=== PATIENT | female | born 1980 | race Caucasian/White ===

== ENCOUNTER 2019-01-18 16:05 | Emergency (ER) | payer MEDICAID, SELFPAY ==
[2019-01-18] MEDS ORDERED: Acetaminophen 500 MG TAB ONE (16:52)
== END 2019-01-18 17:37 | disposition home or self-care (01) ==
LOC: MADERS 16:05
DX: B34.9 Viral infection, unspecified (principal); F17.210 Nicotine dependence, cigarettes, uncomplicated
CPT/HCPCS: 87804; 99283

== ENCOUNTER 2019-01-22 00:14 | Emergency (ER) | payer MEDICAID ==
[2019-01-22 01:03] LABS: #Basophils 0.1 thou/uL (0.0-0.2); #Monocytes 0.5 thou/uL (0.11-0.59); #Neutrophils 9.8 thou/uL (1.40-6.50); %Basophils 0.5 % (0.0-1.0); %Lymphocytes 9.1 % (21.0-51.0); %Monocytes 4.6 % (0.0-10.0); %Neutrophils 85.7 % (42.0-75.0); Hemoglobin 14.2 g/dL (12.0-16.0); Mean Corpuscular HGB CONC 33.9 g/dL (32.0-36.0); Mean Corpuscular Hemoglobin 30.2 pg (27.0-31.0); Mean Corpuscular Volume 88.9 fL (78.0-98.0); Mean Platelet Volume 7.1 fL (7.4-10.4); Platelet Count 235 thou/uL (130-400); RBC Distribution Width 11.4 % (11.5-14.5); Red Blood Cell (RBC) Count 4.69 mill/uL (4.20-5.40); White Blood Cell (WBC) Count 11.4 thou/uL (4.8-10.8)
[2019-01-22 01:14] LABS: BHCG - Serum Negative (NEGATIVE); Pregs Control Background? CLEAR/WHITE (CLR/WHITE); Pregs Control Bar Appear? YES (CONTROL BAR)
[2019-01-22 01:20] LABS: Acetaminophen Less than 6.0 mcg/mL (10.0-30.0); Alcohol Less than 10 mg/dL (Less than 10); Salicylate Less than 8.0 mg/dL (15.0-30.0)
[2019-01-22 01:22] LABS: ALT (SGPT) 24 U/L (8-55); AST (SGOT) 17 U/L (5-34); Albumin 4.1 g/dL (3.5-5.0); Alkaline Phosphatase 46 U/L (40-150); Anion Gap 15 mmol/L (10-20); BUN (Urea Nitrogen) 18 mg/dL (7.0-18.7); Bilirubin, Total 0.6 mg/dL (0.2-1.2); CK (CPK) 66 U/L (29-168); Calc. Creatinine Clearance 0 mL/min (70-130); Calcium 8.5 mg/dL (7.8-10.44); Carbon Dioxide 24 mmol/L (22-29); Chloride 103 mmol/L (98-107); Estimated GFR-MDRD 82; Globulin 2.8 g/dL (2.4-3.5); Glucose 151 mg/dL (70-105); Potassium 3.3 mmol/L (3.5-5.1); Protein, Total 6.9 g/dL (6.0-8.3); Sodium 139 mmol/L (136-145)
[2019-01-22 01:43] LABS: Bilirubin Moderate (Negative); Blood, Urine Large (Negative); Glucose, Urine (Dipstick) Negative (Negative); Leukocyte Negative (Negative); Nitrite Negative (Negative); Protein, Urine (Dipstick) 100 mg/dL (Neg-Trace); pH, Urine 6.5 (5.0-9.0)
[2019-01-22 01:45] LABS: Cocaine Metabolite Screen Not Detected (NotDetected); Methamphetamine Not Detected (NotDetected); Opiate Screen Detected (NotDetected); Phencyclidine (PCP) Not Detected (NotDetected); THC/Cannabinoid Screen Detected (NotDetected)
[2019-01-22 01:46] LABS: Amphetamine Not Detected (NotDetected); Barbiturates Screen Not Detected (NotDetected); Benzodiazepine Screen Not Detected (NotDetected); Clarity Hazy (Clear); Medtox Control Line Valid? VALID (VALID); Methadone Not Detected (NotDetected); Oxycodone Screen Not Detected (NotDetected); Specific Gravity, Urine 1.035 (1.002-1.036); Tricyclic Screen Not Detected (NotDetected)
[2019-01-22 01:49] LABS: Bacteria/HPF None Seen HPF (None Seen); RBC/HPF GREATER THAN 50-TNTC HPF (0-3); WBC/HPF 0-3 HPF (0-3)
[2019-01-22] MEDS ORDERED: Fentanyl 100 MCG/2 ML VIAL ONE ×2 (02:11→07:42)
[2019-01-22 04:05] LABS: Color Of CSF Supernatant COLORLESS (Colorless); Tube # 2; Unspun CSF Color COLORLESS (Colorless)
[2019-01-22 04:22] LABS: CSF, Glucose 52 mg/dl (40-70); CSF, Protein 86 mg/dL (15-40)
[2019-01-22 04:27] LABS: CSF Source CSF; Clarity Clear (Clear); RBC Count - Manual 0 /cumm (None Seen); Tube # 4; WBC/NonHematics Count - Manual 90 /cumm (0-5)
[2019-01-22 05:10] LABS: Cell Count Non Hematic 3 %; Lymphocytes 96 %; Segmented Neutrophils 1 %
[2019-01-22] MEDS ORDERED: Sodium Chloride 0.9% 100 ML ONE (05:10)
[2019-01-22] MEDS ORDERED: Dextrose 5% in Water 250 ML ONE (05:10)
[2019-01-22] MEDS ORDERED: Sodium Chloride 0.9% 1,000 ML BAG ONE (07:42)
[2019-01-22] MEDS ORDERED: Rocuronium Bromide 10 MG/ML (10ML VIAL) ONE (07:42)
[2019-01-22] MEDS ORDERED: Vancomycin HCl 500 MG VIAL ONE (07:42)
[2019-01-22] MEDS ORDERED: cefTRIAXone\\ROCEPHIN 2 GM VIAL ONE (07:42)
[2019-01-22] MEDS ORDERED: Midazolam HCl 10 mg/2 ml Vial ONE ×2 (07:42→09:35)
[2019-01-22] MEDS ORDERED: PROPOFOL 200 MG/20 ML VIAL ONE (07:42)
--- NOTE | 2019-01-22 08:18 | RAD ---
CHEST 1 VIEW: Date: 01/22/19 INDICATION: Tube placement. COMPARISON: None. FINDINGS: Lungs are clear. ET tube tip is seen just below the level of the thoracic inlet. There is a radiopaqu e density overlying the chest which may be related to ventilation equipment. No definite consolidatio n, pleural effusion, or pneumothorax is evident. No acute osseous abnormality is evident. IMPRESSION: Intubation. No acute abnormality. POS: [facility]
--- NOTE | 2019-01-22 14:16 | CT ---
PRELIMINARY REPORT/[facility]/EMERGENTY AFTER-HOURS PROCEDURE CT Head Without Contrast EXAM DATE/TIME: 01/22/2019 12:56 AM CLINICAL HISTORY: 38 years old, female; Signs and symptoms; Other: Drug overdose TECHNIQUE: Axial computed tomography images of the head/brain without contrast. COMPARISON: No relevant prior studies available. FINDINGS: Brain: No acute intracranial hemorrhage or mass effect. No definite acute infarct by CT. MRI could be more sensitive/specific for detection, as clinically di rected. Ventricles: Ventricle size is normal for age. Bones/joints: No definite acute skull fracture. Sinuses: Moderate fluid in the ethmoid sinuses. Mild to moderate mucosal thickening in the maxillary sinus greater on the left. Prominent left sphenoid sinus opacity. Mild mucosal thickening in the frontal and right sphenoid sinuses. Mastoid air cells: No significant acute finding. IMPRESSION: 1. No acute intracranial bleed or mass effect. 2. No definite acute infarct by CT, see above. 3. Other findings discussed above. Thank you for allowing us to participate in the care of your patient. Dictated and Authenticated by: Uche Montes MD 01/22/2019 1:12 AM Central Time ([place] & [place]) FINAL REPORT CT HEAD NONCONTRAST PERFORMED ON AN EMERGENCY BASIS: Date: 01/22/19 Time: 0057 hours HISTORY: Altered mental status. COMPARISON: 08/18/15. FINDINGS/IMPRESSION: Findings agree with the preliminary report by [facility]. No acute intracranial abnormalities are [place]. POS: [facility]
== END 2019-01-22 02:51 | disposition short-term general hospital (02) ==
LOC: MADERS 00:14
DX: R41.82 Altered mental status, unspecified (principal); F17.210 Nicotine dependence, cigarettes, uncomplicated
CPT/HCPCS: 31500; 51702; 62270; 70450; 71045; 80053; 80306; 80307; 81003; 81015; 82550; 82945; 84157; 84443; 84703; 85025; 85060; 89051; 93005; 96361; 96365; 96375; 96376; 99292; J0696; J2250; J2704; J3010; J3370; J7050; J7070

== ENCOUNTER 2024-07-13 09:14 | Emergency (ER) | payer OTHER ==
[2024-07-13 09:53] LABS: Hemoglobin 10.3 g/dL (12.0-16.0); Mean Corpuscular HGB CONC 29.5 g/dL (32.0-36.0); Mean Corpuscular Hemoglobin 23.1 pg (27.0-31.0); Mean Corpuscular Volume 78.3 fl (78.0-98.0); Mean Platelet Volume 6.1 fL (7.4-10.4); Platelet Count 244 10x3/uL (130-400); RBC Distribution Width 16.5 % (11.5-14.5); Red Blood Cell (RBC) Count 4.47 mill/uL (4.20-5.40); White Blood Cell (WBC) Count 4.8 10x3/uL (4.8-10.8)
[2024-07-13 09:55] LABS: BHCG - Serum Negative (NEGATIVE); INR-International Normal Ratio 1.1; Pregs Control Background? CLEAR/WHITE (CLR/WHITE); Pregs Control Bar Appear? YES (CONTROL BAR); Prothrombin Time 14.3 sec (12.0-14.7)
[2024-07-13 10:00] LABS: Anion Gap 14 mmol/L (10-20); BUN (Urea Nitrogen) 12 mg/dL (7.0-18.7); Calc. Creatinine Clearance 0 mL/min (70-130); Calcium 8.3 mg/dL (7.8-10.44); Carbon Dioxide 22 mmol/L (22-29); Chloride 104 mmol/L (98-107); Estimated GFR 89; Glucose 97 mg/dL (70-105); Potassium 3.9 mmol/L (3.5-5.1); Sodium 136 mmol/L (136-145)
[2024-07-13 10:02] LABS: #Lymphocytes 1.1 thou/uL (1.20-3.40); #Monocytes 0.5 thou/uL (0.11-0.59); #Neutrophils 3.2 thou/uL (1.40-6.50); %Basophils 0.7 % (0.0-1.0); %Eosinophils 0.7 % (0.0-10.0); %Lymphocytes 23.2 % (21.0-51.0); %Monocytes 9.4 % (0.0-10.0)
[2024-07-13 10:03] LABS: Anisocytosis SLIGHT = 6-15 cells (100X) (0-5/hpf); Hypochromia SLIGHT = 6-15 cells (100X) (0-5/hpf); Microcytosis SLIGHT = 6-15 cells (100X) (0-5/hpf); Platelet Adequacy Comment Appears Adequate
== END 2024-07-13 10:21 | disposition home or self-care (01) ==
LOC: MADERS 09:14
DX: R51.9 Headache, unspecified (principal); T74.11XA Adult physical abuse, confirmed, initial encounter; F17.210 Nicotine dependence, cigarettes, uncomplicated
CPT/HCPCS: 70450; 72125; 80048; 84703; 85025; 85610